=== PATIENT | female | born 1960 | race Hispanic/Latino ===

== ENCOUNTER 2021-06-26 13:07 | Emergency (ER) | payer BC, OTHER ==
[~2021-06-26] VITALS: Ht 165.1 cm; Wt 65.0 kg
[2021-06-26] MEDS ORDERED: PENICILLIN G BENZATHINE LA 1.2 MU TBX IM STA (14:12)
== END 2021-06-26 14:26 | disposition home or self-care (01) ==
LOC: FSED 13:26
DX: R05.9 Cough, unspecified (principal); J02.0 Streptococcal pharyngitis
CPT/HCPCS: 83518; 96372; 99283; J0561

== ENCOUNTER → 2024-06-24 | Outpatient (REF) | payer OTHER | LOC: US 12:13 | PROVIDERS: ATTEND Nurse Practitioner | DX: K76.0 Fatty (change of) liver, not elsewhere classified (principal) | CPT/HCPCS: 76700 ==

== ENCOUNTER → 2025-01-01 | Outpatient (REF) | payer MEDICARE | LOC: US 11:40 | PROVIDERS: ATTEND Internal Medicine | DX: E04.1 Nontoxic single thyroid nodule (principal) | CPT/HCPCS: 76536 ==